=== PATIENT | female | born 1985 | race Caucasian/White ===

== ENCOUNTER 2020-05-10 14:55 | Emergency (ER) | payer OTHER ==
--- NOTE | 2020-05-10 15:01 | PDOC ---
Attending Attestation - Resident Resident Name: ManuelEri - ED Attending Attestation I have performed the following: I have examined & evaluated the patient, The case was reviewed & discussed with the resident, I agree w/resident's findings & plan, Exceptions are as noted - HPI HPI: 05/10/20 16:41 35-year-old female, 2 para 1, 35 weeks , known placenta previa, being closely followed by Dr. Navarrete in [place]. Today was having a bowel movement, had a sudden gush of bright red blood which "filled the toilet bowl", no cramping or other pain. Bleeding has subsided. No prior bleeding before today. No blood dyscrasias or bleeding diathesis in the past were noted. - Physicial Exam PE: 05/10/20 16:43 PE reveals well-developed well-nourished female in no acute distress, exp eriencing no cramping or other pain and no further bleeding. Afebrile, vital signs normal, including orthostatics. HEENT normal Neck supple without bruit mass or nodes Chest clear CV regular without murmur rub or gallop, 100/min Abdomen with 35-week size uterus, with good heart tones in the right lower quadrant, 140 and regular. No tenderness to palpation. Vaginal exam was deferred because the bleeding has subsided and placenta previa is known to be present. H&H are stable. INR is normal. As noted above, orthostatic changes in pulse and blood pressure are not present, and there is no other sign of hypovolemia such as lightheadedness, dizziness, chest pain, or shortness of breath. Ultrasound was attempted but an adequate study could not be obtained. - Medical Decision Making 05/10/20 16:45 Assessment: Third trimester bleeding, subsided, known placenta previa, H&H stable, no orthostatic changes. Bleeding most likely from the previa, but seems to have stabilized Plan: Dr. Navarrete, the patient's BLASTING ENTRYMAN physician in [place], was contacted by phone. The case was discussed in full, including the hemodynamic, physical exam, and laboratory findings. Dr. Navarrete had just seen the patient yesterday, and she was doing well, without any bleeding up to this point. The plan was to closely observe until labor begins, hoping that the placenta previa at that point would be in a more favorable position for delivery. Otherwise to perform a . [place] [facility] [place] in the [place]s unit. She remains clinically and hemodynamically stable at present with no further significant bleeding. 05/10/20 17:24 Discharge - Discharge Information Problems reviewed: Yes Clinical Impression/Diagnosis: with third trimester bleeding Placenta previa Qualifiers: Trimester: third trimester Qualified Code(s): O44.03 - Complete placenta previa NOS or without hemorrhage, third trimester Condition: Stable - Admission Yes - Follow up/Referral - Patient Discharge Instructions - Post Discharge Activity
[2020-05-10 15:08] VITALS: TEMP 98.2; BMI 25.7
--- NOTE | 2020-05-10 15:15 | PDOC ---
History of Present Illness - General Chief Complaint: Vaginal Bleeding Stated Complaint: BLEEDING 35 WEEKS Time Seen by Provider: 05/10/20 15:01 - History of Present Illness Initial Comments: Lakesha Means is a 35yo woman at 35wks gestation, known placenta previa, who presents with vaginal bleeding starting around 45 minutes ago. She says that she had a bowel movement and noticed blood on the tissue. When she stood up, she felt that there was a significant amount of blood in the toilet bowl. She called her OB but came directly to the ED. She says that the bleeding does seem to have subsided at this point, but she is concerned about her . She denies any abdominal or back pain, lightheadedness, fever, gush of fluid, or other current symptoms. She has had no problems with the other than the diagnosed previa. Her first was full term and without complications. Ms Means [place] [facility] [place] Past History - Medical History Allergies/Adverse Reactions: Allergies Allergy/AdvReac Type Severity Reaction Status Date / Time NSAIDS (Non-Steroidal Allergy Severe Difficulty Verified 05/10/20 14:59 Anti-Inflamma Breathing Penicillins Allergy Difficulty Verified 05/10/20 14:59 Breathing Home Medications: Ambulatory Orders 95/Iron Fum/Folic/Dha [ + Dha Combo Pack] 1 each PO DAILY 05/10/20 - Reproductive History Is Patient Now?: Yes (35 WEEKS) (#): 2 Para: 1 - Psycho-Social/Smoking History Smoking History: Never smoked Have you smoked in the past 12 months: No Information on smoking cessation initiated: No - Substance Abuse Hx (Audit-C & DAST Scrn) How often the patient has a drink containing alcohol: Never Score: In Men: 4 or > Positive; In Women: 3 or > Positive: 0 Screen Result (Pos requires Nsg. Audit-10AR): Negative In the last yr the pt used illegal drug/Rx for NonMed reason: No Score: Yes response is considered Positive: 0 Screen Result (Positive result requires Nsg. DAST-10): Negative Review of Systems - Review of Systems Comments:: General: No fevers, no chills, no weight or appetite change, no malaise HEENT: No changes in vision, no changes in hearing, no congestion, no sore throat CV: No chest pain, no palpitations, no LE edema Pulm: No SOB, no cough, no wheezing GI: No nausea or vomiting, no change in bowel habits, no melena : No frequency, no urgency, no dysuria. See HPI Musc: No back pain, no joint swelling, no recent injury Skin: No rash, no lesions, no erythema Endo: No excessive thirst, no heat/cold intolerance Heme: No unusual bruising or bleeding, no swollen glands Neuro: No syncope, no numbness/tingling, no focal weakness Vasc: No claudication Psych: No recent change in mood, no SI or HI *Physical Exam - Vital Signs Last Vital Signs Temp Pulse Resp BP Pulse Ox 98.2 F 125 H 20 137/81 99 05/10/20 14:57 05/10/20 14:57 05/10/20 14:57 05/10/20 14:57 05/10/20 14:57 - Physical Exam General: Comfortable, no acute distress HEENT: PERRL, EOMI, MMM, voice normal, normal neck ROM, no LAD Cards: RRR, no murmur appreciated Pulm: Comfortable on room air, clear to auscultation bilaterally Abd: Soft, nontender, nondistended : Normal external genitalia. Small amount of drying, clotted blood externally. Vaginal exam deferred Ext: Atraumatic. No LE edema. ROM intact. WWP Skin: Normal color, no rashes or lesions Neuro: A&Ox3, CN grossly intact, normal speech, motor/sensory grossly intact and symmetric Psych: Mood appropriate to situation ED Treatment Course - LABORATORY CBC & Chemistry Diagram: 05/10/20 15:40 05/10/20 15:40 Medical Decision Making - Medical Decision Making 05/10/20 15:14 Lakesha Means is a 35yo woman at 35wks gestation, known placenta previa, who presents with painless vaginal bleeding starting around 45 minutes ago. - No active bleeding on exam - CBC, CMP, coags, T&S - Orthostatics - Ultrasound 05/10/20 16:43 - US completed, gestational age 35wks, FHR 135. Report pending - Labs completed, no concerning abnormalities - Dr Hurley spoke to pt's regular OB, who is requesting overnight ob servation and monitoring. Will contact OB business support liaison 05/10/20 18:07 - EMS arrived, will take pt to L&D for further evaluation Discussed with Dr Xavi Jackson PGY3 Discharge - Discharge Information Problems reviewed: Yes Clinical Impression/Diagnosis: with third trimester bleeding Placenta previa Qualifiers: Trimester: third trimester Qualified Code(s): O44.03 - Complete placenta previa NOS or without hemorrhage, third trimester Condition: Stable - Admission Yes - Follow up/Referral - Patient Discharge Instructions - Post Discharge Activity
[2020-05-10 15:58] LABS: HEMOGLOBIN 12.7 GM/dl (10.7-15.3); MEAN PLT VOLUME 9.3 fl (7.5-11.1)
[2020-05-10 16:00] LABS: BASO % 0.3 % (0-2.0); EOS % 0.5 % (0-4.5); HEMATOCRIT 37.1 % (32.4-45.2); LYMPH % 16.9 % (8-40); MCH 33.1 pg (25.7-33.7); MCHC 34.1 g/dl (32.0-36.0); MONO % 8.3 % (3.8-10.2); PLATELET COUNT 191 K/MM3 (134-434); RBC 3.83 M/mm3 (3.60-5.2); RDW 12.2 % (11.6-15.6)
[2020-05-10 16:01] LABS: INR 0.99 (0.82-1.09); PROTHROMBIN TIME (PATIENT) 11.1 SEC (10.2-13.0)
[2020-05-10 16:05] LABS: ALBUMIN 3.1 g/dl (3.4-5.0); BILIRUBIN,TOTAL 0.5 mg/dl (0.2-1); CALCIUM 8.9 mg/dl (8.5-10); CREATININE 0.5 mg/dl (0.55-1.3); POTASSIUM 3.9 mmol/L (3.5-5.1); TOT PROT 5.9 g/dl (6.4-8.2)
[2020-05-10 16:08] LABS: ACTIVATED PTT 24.7 SECONDS (25.2-36.5)
[2020-05-10 17:59] VITALS: BP 108/79; PULSE 93
== END 2020-05-10 19:00 | disposition short-term general hospital (02) ==
LOC: FER 14:55
DX: O44.03 Complete placenta previa NOS or without hemorrhage, third trimester (principal)
CPT/HCPCS: 36415; 76815-TC; 80053; 85025; 85610; 85730; 86850; 86900; 86901; 99284-25; U0003

== ENCOUNTER 2020-05-10 18:35 | Inpatient (IN) | payer OTHER ==
[2020-05-10] MEDS ORDERED: ELECTROLYTE-148 SOLN 500 ML IV ONE (22:35)
[2020-05-10] MEDS ORDERED: CITRIC ACID/SODIUM CITRATE 30 ML UNIT-DOSE CUP PO ONE (22:35)
--- NOTE | 2020-05-10 22:43 | HP ---
Past Medical History - Admission Chief Complaint: Bleeding History of Present Illness: 35yo @ 34.6wks with stated SOLANGE 06/15/20 who was sent in by ambulance from [facility] after presenting with vaginal bleeding after a BM. Preg c/b placenta previa, last confirmed on sonogram at 30 weeks. No previous VB in this . Denies ctx. No LOF. +FM Preg c/b: AMA, placenta previa PNC @ [facility] [place]- Dr. Navarrete. 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: No: Alzheimer's, CVA, Dementia, Migraine, Multiple Sclerosis, Peripheral Neuropathy, Parkinson's, Seizure, Syncope, TIA, Vertigo, Other Cardiovascular: No: AFIB, Aneurysm, Aortic Insufficiency, Aortic Stenosis, CAD, CHF, Deep Vein Thrombosis, HTN, Hyperlipdemia, ME, Mitral Insufficiency, Mitral Stenosis, Murmur, Pulmonary Hypertension, Other Pulmonary: No: Asthma, Bronchitis, Cancer, COPD, O2 Dependent, Pneumonia, Previously Intubated, Pulmonary Embolus, Pulmonary Fibrosis, Sleep Apnea, Other Gastrointestinal: No: Ascites, Cancer, Constipation, Crohn's Disease, Diverticulitis, Diverticulosis, Esophageal Varices, Gastritis, GERD, GI Bleed, Hemorrhoids, Hiatal Hernia, Inflamatory Bowel Disease, Irritable Bowel Disease, Pancreatitis, Peptic Ulcer Disease, Ulcerative Colitis, Other Hepatobiliary: No: Cirrhosis, Cholelithiasis, Cholecystitis, Choledoch olithiasis, Hepatitis A, Hepatitis B, Hepatitis C, Other Renal/: No: Renal Failure, Renal Inusuff, BPH, Cancer, Hematuria, Hemodialysis, Neurogenic Bladder, Renal Calculi, UTI, Other ...: 2 ...Para: 1 ...Term: 1 ...Living Children: 1 ...LMP: 09/09/19 ... Weeks Gestation by Dates: 34.6 ...EDC by Sono: 06/15/20 Heme/Onc: No: Anemia, B12 Deficiency, Bleeding Disorder, Cancer, Current Chemotherapy, Current Radiation Therapy, Hemochromatosis, Hypercoaguable State, Myeloproliferative Synd, Sickle Cell Disease, Sickle Cell Trait, Thrombocytopenia, Other Infectious Disease: No: AIDS, C-Diff, Herpes Zoster, HIV, MRSA, STD's, Tuberculosis, VREF, Other - Past Surgical History Past Surgical History: Yes: None Hx Myomectomy: No Hx Transabdominal Cerclage: No - Smoking History Smoking history: Never smoked Have you smoked in the past 12 months: No - Alcohol/Substance Use Hx Alcohol Use: No History of Substance Use: reports: None - Social History Usual Living Arrangement: Yes: With Spouse Do you think of yourself as: Straight/Heterosexual ADL: Independent History of Recent Travel: No Home Medications - Allergies Allergies/Adverse Reactions: Allergies Allergy/AdvReac Type Severity Reaction Status Date / Time NSAIDS (Non-Steroidal Allergy Severe Difficulty Verified 05/10/20 14:59 Anti-Inflamma Breathing Penicillins Allergy Difficulty Verified 05/10/20 14:59 Breathing - Home Medications Home Medications: Ambulatory Orders 95/Iron Fum/Folic/Dha [ + Dha Combo Pack] 1 each PO DAILY 05/10/20 Review of Systems - Review of Systems Constitutional: reports: No Symptoms Respiratory: reports: No Symptoms Gastrointestinal: reports: No Symptoms Genitourinary: reports: No Symptoms Physical Exam - Maternity Vital Signs: Vital Signs Temperature 97.6 F 05/10/20 19:30 Pulse Rate 82 05/10/20 19:30 Respiratory Rate 20 05/10/20 19:30 Blood Pressure 115/2 L 05/10/20 19:30 O2 Sat by Pulse Oximetry (%) - Abdominal Exam/OB Number of Fetuses: Single Presentation: Vertex Contractions: Yes Regularity: Irregular Intensity: Unaware Monitor Mode: External Heart Rate Location: [facility] Category: I Accelerations: Non-Uniform Decelerations: None - Vaginal Exam/OB Vaginal Bleeding: Yes Speculum Exam: No Dilatation (cm): 0.5 Effacement (%): 0 Amniotic Membrane Status: Intact Presentation: Vertex/Position Station: -3 Imaging - Results Ultrasound: Report Reviewed, Image Reviewed Assessment/Plan 35yo @ 34.6wks by stated SOLANGE here with vaginal bleeding, contractions and placenta previa Admit to L&D NPO, IVFs Labs ordered, including COVID Sonogram ordered, which confirmed placenta previa posteriorly Pt initially expressed interest in signing out and presenting to her OBGYN at [facility], did have discussion with acquisition lead physician- whom also advised against. FHT Cat I Recommended delivery via PLTCS in light of early labor and placenta previa. Risk of bleeding, infection and injury to bladder/bowel/adnexa and vessels reviewed. Bleeding risk and need for transfusion also discussed. All questions answered. Consents signed. Zora Slaughter MD
[2020-05-10] MEDS: ELECTROLYTE-148 SOLN 1,000 ML IV SCH (23:00)
[2020-05-10 23:02] LABS: BASO % 0.3 % (0-2.0); EOS % 0.1 % (0-4.5); HEMATOCRIT 37.2 % (32.4-45.2); HEMOGLOBIN 12.8 GM/dL (10.7-15.3); LYMPH % 16.1 % (8-40); MCH 33.3 pg (25.7-33.7); MCHC 34.5 g/dl (32.0-36.0); MEAN CELL VOLUME 96.3 fl (80-96); MEAN PLT VOLUME 9.3 fl (7.5-11.1); MONO % 6.7 % (3.8-10.2); NEUT % 76.8 % (42.8-82.8); PLATELET COUNT 178 K/MM3 (134-434); RBC 3.86 M/mm3 (3.60-5.2); RDW 13.1 % (11.6-15.6); WHITE BLOOD COUNT 8.7 K/mm3 (4.0-10.0)
[2020-05-10 23:11] LABS: INR 0.89 (0.83-1.09); PROTHROMBIN TIME (PATIENT) 10.5 SEC (9.7-13.0)
[2020-05-10 23:13] LABS: ACTIVATED PTT 27.6 SECONDS (25.2-36.5)
[2020-05-10 23:28] LABS: ALBUMIN 3.2 g/dl (3.4-5.0); BILIRUBIN,TOTAL 0.5 mg/dL (0.2-1); BLOOD UREA NITROGEN 5.7 mg/dL (7-18); CALCIUM 8.9 mg/dL (8.5-10.1); CREATININE 0.5 mg/dL (0.55-1.3); POTASSIUM 3.9 mmol/L (3.5-5.1); TOT PROT 6.8 g/dl (6.4-8.2)
[2020-05-10] MEDS ORDERED: SUCCINYLCHOLINE CHLORIDE 200 MG/10 ML SYRINGE ONE (23:47)
[2020-05-10] MEDS ORDERED: PHENYLEPHRINE HCL 10 MG/1 ML SINGLE DOSE VIAL ONE (23:47)
[2020-05-10] MEDS ORDERED: morphine SULFATE/PF 0.5 MG/ML (2cc Syringe - QUVA) ONE (23:47)
[2020-05-10] MEDS ORDERED: PROPOFOL 20 ML ONE (23:47)
[2020-05-10 23:48] VITALS: BMI 24.2
[2020-05-10] MEDS ORDERED: ePHEDrine SULFATE 50 MG/1 ML AMPULE ONE (23:55)
[2020-05-11] MEDS ORDERED: OXYTOCIN 20 UNITS in 0.9% NS 20 UNIT/1,000 ML INFUS.BAG IV ONE (00:02)
[2020-05-11] MEDS ORDERED: OXYTOCIN 10 UNITS/ML VIAL ONE (01:32)
[2020-05-11] MEDS ORDERED: METHYLERGONOVINE MALEATE 0.2 MG/1 ML AMP IM PRN (01:48)
[2020-05-11] MEDS ORDERED: oxyCODONE HCL 5 MG TABLET PO PRN (01:48)
--- NOTE | 2020-05-11 01:48 | OP ---
Operative Note - Note: Operative Date: 05/11/20 Pre-Operative Diagnosis: 35 week , Placenta Previa, Bleeding, Labor Operation: Primary Low Transverse Post-Operative Diagnosis: Same as Pre-op Surgeon: Domi Slaughter Drafter Electrical: Doyle Lake Anesthesiologist/HOME SALES SERVICE PROFESSIONAL: Natalie Downey Anesthesia: Spinal Estimated Blood Loss (mls): 600 Drains, Volume Out (mls): 100 (clear urine) Operative Report Dictated: Yes
[2020-05-11] MEDS ORDERED: ONDANSETRON 4 MG/2 ML VIAL IVPUSH PRN (01:50)
[2020-05-11] MEDS ORDERED: morphine SULFATE/PF 0.5 MG/ML (2cc Syringe - QUVA) SPIN ONE (01:50)
[2020-05-11] MEDS: OXYTOCIN 20 UNITS in 0.9% NS 20 UNIT/1,000 ML INFUS.BAG IV SCH (02:15)
--- NOTE | 2020-05-11 02:18 | PN ---
Progress Note (short form) - Note Progress Note: I assisted Dr. yanez at c/section for the entirety of the case.
[2020-05-11 08:14] LABS: BASO % 0.2 % (0-2.0); EOS % 0.1 % (0-4.5); HEMATOCRIT 31.1 % (32.4-45.2); HEMOGLOBIN 10.9 GM/dL (10.7-15.3); LYMPH % 14.7 % (8-40); MCH 33.7 pg (25.7-33.7); MEAN CELL VOLUME 96.4 fl (80-96); MEAN PLT VOLUME 9.8 fl (7.5-11.1); MONO % 8.1 % (3.8-10.2); NEUT % 76.9 % (42.8-82.8); PLATELET COUNT 151 K/MM3 (134-434); RBC 3.23 M/mm3 (3.60-5.2); RDW 13.1 % (11.6-15.6); WHITE BLOOD COUNT 8.9 K/mm3 (4.0-10.0)
[2020-05-11] MEDS: FERROUS SO4 325 MG TABLET (FP) PO SCH ×2 (09:11→22:40)
[2020-05-11] MEDS: PRENATAL VITAMINS W/ FOLIC ACID TABLET (FP) PO SCH (09:11)
--- NOTE | 2020-05-11 09:25 | OP ---
DATE OF OPERATION: 05/11/2020 PREOPERATIVE DIAGNOSES: A 35-week , placenta previa, bleeding, labor. POSTOPERATIVE DIAGNOSES: A 35-week , placenta previa, bleeding, labor. PROCEDURE: Primary low transverse section. ANESTHESIA: Spinal. SURGEON: Domi Slaughter MD DIRECTOR OF FIELD SALES: Doyle Lake MD ANESTHESIOLOGIST: Natalie Downey MD ESTIMATED BLOOD LOSS: 600. INTRAVENOUS FLUIDS: Per Anesthesia record. URINE OUTPUT: At least 100 mL of clear urine at the end of the procedure. FINDINGS: Viable male . LOT presentation. Nuchal x1. Clear amniotic fluid. Apgars 9/9. Weight pending. Normal tubes and ovaries bilaterally. COMPLICATIONS: None. CONDITION: Stable to recovery room. NATURE OF PROCEDURE: After the appropriate consents were signed, patient was taken to the operating room where spinal anesthesia was administered. She was placed in supine position. The abdomen was prepped and draped in a normal sterile fashion. A sterile Arambula catheter was inserted prior to entry into the operating room. Timeout was performed confirming correct patient and procedure. A Pfannenstiel incision was made carried through the underlying layers until the fascia was nicked in the midline. The fascia was then extended laterally with the Canas scissors. The inferior aspect of the fascia was grasped with the Yina clamps, tented upwards, and the rectus muscle was dissected off bluntly and with the Canas scissors. Attention was then paid to the superior aspect, which was taken down in a similar fashion. The rectus muscles were in the midline with a scalpel. The peritoneum was then entered bluntly. The bladder blade was inserted. The bladder flap was created with the Metzenbaum scissors and digitally. The uterus was incised in a low transverse fashion. Clear amniotic fluid was noted. The infant's head was delivered without difficulty, as were the remaining shoulder and body. The cord was clamped and cut, and the infant was handed off to the awaiting NICU staff. The placenta was then cleared manually from the uterus. The uterus was cleared of all clots and debris. The uterus was closed in a single layer with a 1-0 Vicryl. The area essentially was reapproximated with a [id number] to achieve hemostasis. Gutters were cleared of clots and debris. The hysterotomy was reexamined and noted to be hemostatic. Muscles then reapproximated with a 2-0 chromic. The fascia was closed with a 0 Vicryl. Skin was closed with a 3-0 Biosyn. Bandages were applied. All counts were correct. The patient did receive clindamycin and gentamycin at the start of the procedure. She was taken from the operating room to the recovery area in stable condition. MD ELVIA ROMANO/[id number]
[2020-05-11] MEDS: SIMETHICONE 80 MG TAB.CHEW (FP) PO PRN (22:42)
[2020-05-11] MEDS: ACETAMINOPHEN 325 MG TABLET (FP) PO PRN (22:43)
[2020-05-12] MEDS ORDERED: BISACODYL 10 MG SUPP.RECT RC PRN (01:48)
--- NOTE | 2020-05-12 06:53 | PN ---
Progress Note (short form) - Note Progress Note: pod 1 .s/p c/s, has mild low abdominal cramps, no excess vaginal bleeding Last Vital Signs Temp Pulse Resp BP Pulse Ox 98 F 64 18 119/61 98 05/11/20 22:00 05/11/20 22:00 05/12/20 02:26 05/11/20 22:00 05/11/20 19:04 CBC, BMP 05/11/20 06:44 05/10/20 22:40 abdomen soft, no distension, no cva incision dry, clean no calf tenderness lochia mild plan cbc ambulate advance diet
[2020-05-12 08:22] LABS: BASO % 0.1 % (0-2.0); EOS % 0.1 % (0-4.5); HEMATOCRIT 33.2 % (32.4-45.2); HEMOGLOBIN 11.6 GM/dL (10.7-15.3); LYMPH % 9.2 % (8-40); MCH 33.6 pg (25.7-33.7); MEAN CELL VOLUME 95.9 fl (80-96); MEAN PLT VOLUME 9.2 fl (7.5-11.1); MONO % 7.3 % (3.8-10.2); NEUT % 83.3 % (42.8-82.8); PLATELET COUNT 172 K/MM3 (134-434); RBC 3.46 M/mm3 (3.60-5.2); WHITE BLOOD COUNT 9.6 K/mm3 (4.0-10.0)
[2020-05-12] MEDS: PRENATAL VITAMINS W/ FOLIC ACID TABLET (FP) PO SCH (10:52)
[2020-05-12] MEDS: FERROUS SO4 325 MG TABLET (FP) PO SCH ×2 (10:52→21:27)
[2020-05-12] MEDS: SIMETHICONE 80 MG TAB.CHEW (FP) PO PRN ×2 (10:53→13:14)
[2020-05-12] MEDS: ACETAMINOPHEN 325 MG TABLET (FP) PO PRN (13:12)
--- NOTE | 2020-05-12 14:24 | PN ---
Progress Note (short form) - Note Progress Note: Anesthesia post Op/pain Pt seen and examined S:Alert and awake, comfortanle O: Vital Signs Temperature 98 F 05/11/20 22:00 Pulse Rate 64 05/11/20 22:00 Respiratory Rate 18 05/12/20 02:26 Blood Pressure 119/61 05/11/20 22:00 O2 Sat by Pulse Oximetry (%) 98 05/11/20 19:04 CBC, BMP 05/12/20 07:15 05/10/20 22:40 A/P: Current Active Problems Placenta previa (Acute) with third trimester bleeding (Acute) s/p s/p c section Doing well post op Continue current care Krishna Gupta MD
[2020-05-13] MEDS: SIMETHICONE 80 MG TAB.CHEW (FP) PO PRN (01:30)
[2020-05-13] MEDS: ACETAMINOPHEN 325 MG TABLET (FP) PO PRN ×2 (01:30→13:29)
--- NOTE | 2020-05-13 07:12 | PN ---
Post Progress Note - Subjective Subjective: Ambulating, tolerating PO, lochia decreased, breast feeding. Post Day: 2 Type of Delivery: Primary C/S Vital Signs: Vital Signs Temperature 97.9 F 05/12/20 22:00 Pulse Rate 92 H 05/12/20 22:00 Respiratory Rate 18 05/12/20 22:00 Blood Pressure 112/65 05/12/20 22:00 O2 Sat by Pulse Oximetry (%) 99 05/12/20 21:00 Breast Exam: Yes: Other Uterus: Yes: Fundus Firm Incision: Yes: Sutures intact Abdomen/GI: Yes: Abdomen soft Lochia, amount: Moderate Extremities: Yes: Calves non-tender Perineum: Yes: Intact Activity: Ambulating - Labs Labs: CBC WBC 9.6 K/mm3 (4.0-10.0) 05/12/20 07:15 RBC 3.46 M/mm3 (3.60-5.2) L 05/12/20 07:15 Hgb 11.6 GM/dL (10.7-15.3) 05/12/20 07:15 Hct 33.2 % (32.4-45.2) 05/12/20 07:15 MCV 95.9 fl (80-96) 05/12/20 07:15 MCH 33.6 pg (25.7-33.7) 05/12/20 07:15 MCHC 35.0 g/dl (32.0-36.0) 05/12/20 07:15 RDW 13.0 % (11.6-15.6) 05/12/20 07:15 Plt Count 172 K/MM3 (134-434) 05/12/20 07:15 MPV 9.2 fl (7.5-11.1) 05/12/20 07:15 Absolute Neuts (auto) 8.0 K/mm3 (1.5-8.0) 05/12/20 07:15 Neutrophils % 83.3 % (42.8-82.8) H 05/12/20 07:15 Lymphocytes % 9.2 % (8-40) D 05/12/20 07:15 Monocytes % 7.3 % (3.8-10.2) 05/12/20 07:15 Eosinophils % 0.1 % (0-4.5) 05/12/20 07:15 Basophils % 0.1 % (0-2.0) 05/12/20 07:15 Nucleated RBC % 0 % (0-0) 05/12/20 07:15 Assessment/Plan 35 y/o on POD # 2 S/P PLTCS for previa at 35 wks. -Continue PP/psot-op care -Consider D/C home on POD # 3 vs 4
[2020-05-13] MEDS: PRENATAL VITAMINS W/ FOLIC ACID TABLET (FP) PO SCH (10:42)
[2020-05-13] MEDS: FERROUS SO4 325 MG TABLET (FP) PO SCH ×2 (10:42→22:25)
[2020-05-13 21:43] VITALS: TEMP 97.4
[2020-05-13] MEDS: OXYTOCIN 20 UNITS in 0.9% NS 20 UNIT/1,000 ML INFUS.BAG IV SCH (22:37)
[2020-05-13] MEDS: ELECTROLYTE-148 SOLN 1,000 ML IV SCH (22:37)
[2020-05-14 08:08] LABS: BASO % 0.2 % (0-2.0); EOS % 2.2 % (0-4.5); HEMATOCRIT 31.9 % (32.4-45.2); HEMOGLOBIN 11.1 GM/dL (10.7-15.3); LYMPH % 22.6 % (8-40); MCH 33.3 pg (25.7-33.7); MCHC 34.7 g/dl (32.0-36.0); MEAN PLT VOLUME 8.7 fl (7.5-11.1); MONO % 6.8 % (3.8-10.2); NEUT % 68.2 % (42.8-82.8); PLATELET COUNT 189 K/MM3 (134-434); RBC 3.32 M/mm3 (3.60-5.2); RDW 13.2 % (11.6-15.6); WHITE BLOOD COUNT 6.3 K/mm3 (4.0-10.0)
[2020-05-14] MEDS: PRENATAL VITAMINS W/ FOLIC ACID TABLET (FP) PO SCH (10:36)
[2020-05-14] MEDS: FERROUS SO4 325 MG TABLET (FP) PO SCH (10:36)
[2020-05-14 10:49] VITALS: BP 114/69; PULSE 82
--- NOTE | 2020-05-14 12:06 | DS ---
Physical Examination Vital Signs: Vital Signs Temperature 97.4 F L 05/14/20 10:00 Pulse Rate 82 05/14/20 10:00 Respiratory Rate 16 05/14/20 10:00 Blood Pressure 114/69 05/14/20 10:00 O2 Sat by Pulse Oximetry (%) 100 05/14/20 10:00 Findings/Remarks: Ambulating, tolerating PO, lochia decreased, voiding, baby in center delivered at 35 wks. Pp/post-op precautions discussed. Constitutional: Yes: No Distress HENT: Yes: Atraumatic Neck: Yes: Supple Cardiovascular: Yes: Regular Rate and Rhythm Respiratory: Yes: Regular Gastrointestinal: Yes: Soft ...Rectal Exam: Yes: Other Renal/: Yes: Other Breast(s): Yes: Other Musculoskeletal: Yes: WNL Extremities: Yes: WNL Edema: Yes Edema: LLE: Trace, RLE: Trace Peripheral Pulses WNL: Yes Integumentary: Yes: WNL Wound/Incision: Yes: Well Approximated Neurological: Yes: Alert, Oriented ...Motor Strength: WNL Psychiatric: Yes: Alert, Oriented Labs: CBC, BMP 05/14/20 07:20 05/10/20 22:40 Discharge Summary Problems reviewed: Yes Reason For Visit: ADMISSION Procedures: Principal: delivery Hospital Course: Uncomplicated post-op/PP recovery Plan of Treatment: Follow up with MD within a week of discharge for incision check Condition: Stable - Instructions Diet, Activity, Other Instructions: Regular Diet You can follow up with Dr. Slaughter for your care or your primary OBGYN at [facility] [place] 3[place]4 [place] Referrals: Domi Slaughter MD [Staff Physician] - Disposition: HOME - Home Medications Comprehensive Discharge Medication List: Ambulatory Orders 95/Iron Fum/Folic/Dha [ + Dha Combo Pack] 1 each PO DAILY 05/10/20 Ferrous Sulfate [Feosol] 325 mg PO DAILY #30 tablet 05/11/20 Oxycodone HCl/Acetaminophen [Percocet 5-325 mg Tablet -] 1 - 2 tab PO Q6H PRN #25 tab MDD 4 05/11/20
--- NOTE | 2020-05-16 16:18 | PATH ---
Surgical Pathology Report Patient Name: KAYLEN THOMPSON [facility]. Rec. 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 TRIVASCULAR CORD. MEMBRANES WITH NO DIAGNOSTIC ABNORMALITIES. Electronically Signed Shaw Carnes M.D. Gross Description The specimen is received fresh labeled placenta and is a 449 gram, 21.0 x 16.0 x 2.4 cm. placenta with attached membranes and umbilical cord. The attached membranes are denson, translucent with focal opacities and insert marginally. The umbilical cord measures 30 cm. in length and averages 1.4 cm. in diameter. The cord inserts eccentrically, 3 cm. to the nearest margin. No true knots or strictures are identified. Cut surface of the umbilical cord reveals 3 vessels. The surface is noble-blue with minimal fibrin deposition and appropriate caliber vessels. The maternal surface is red-brown with focal defects. Sectioning reveals red-brown, spongy parenchyma. No lesions are identified. Multi Punch Operator sections are submitted in three cassettes as follows: 1- membrane rolls and umbilical cord; 2-3- full thickness sections of placenta. 05/15/2020 [facility]/2020
== END 2020-05-14 17:00 | disposition home or self-care (01) | DRG 786 ==
LOC: JDEL 18:35 → JLDR 22:25 → J3W 05-11 03:36
PROVIDERS: ADMIT Obstetrics & Gynecology; ATTEND Obstetrics & Gynecology
PROC: BY4FZZZ Ultrasonography of Third Trimester, Single Fetus (ICD-10-PCS; 2020-05-10)
PROC: 10D00Z1 Extraction of Products of Conception, Low, Open Approach (ICD-10-PCS; principal; 2020-05-11)
DX: O82 Encounter for cesarean delivery without indication (principal); O44.13 Complete placenta previa with hemorrhage, third trimester; O60.14X0 Preterm labor third trimester with preterm delivery third trimester, not applicable or unspecified; Z3A.35 35 weeks gestation of pregnancy; Z37.0 Single live birth; O69.81X0 Labor and delivery complicated by cord around neck, without compression, not applicable or unspecified; Z88.0 Allergy status to penicillin; Z88.6 Allergy status to analgesic agent
CPT/HCPCS: 36415; 76819-TC; 80053; 85025; 85610; 85730; 86762; 86780; 86850; 86900; 86901; 86922; 87340; 87389; 88307-TC